=== PATIENT | male | born 1995 | race Caucasian/White ===

== ENCOUNTER 2020-08-27 10:09 | Emergency (ER) | payer OTHER ==
[2020-08-27 10:20] VITALS: BP 117/79; PULSE 80; TEMP 97.9; BMI 17.7
== END 2020-08-27 12:17 | disposition home or self-care (01) ==
LOC: JER 10:09
DX: R07.9 Chest pain, unspecified (principal); F41.9 Anxiety disorder, unspecified
CPT/HCPCS: 93005; 93010; 99283-25